=== PATIENT | female | born 1965 | race Caucasian/White ===

== ENCOUNTER 2024-11-08 19:14 | Emergency (ER) | payer OTHER, SELFPAY ==
--- NOTE | ~2024-11-08 | XR_ITS ---
EXAM: XR wrist LT 2V, XR forearm LT 2V DATE: 11/08/2024 19:52 HISTORY: fall . COMPARISON: None available. FINDINGS: Osteopenia. Comminuted, intra-articular distal left radial fracture, with 3 mm posterior d isplacement and mild impaction. No lytic or blastic lesion. Joint spaces are maintained. No erosion o r periosteal change. Soft tissues within normal limits. IMPRESSION: Comminuted, intra-articular, mildly impacted and mildly displaced distal left radial frac ture. Reviewed, dictated and finalized at location K. IMPRESSION: Comminuted, intra-articular, mildly impacted and mildly displaced d istal left radial fracture.
--- NOTE | ~2024-11-08 | XR_ITS ---
EXAM: XR wrist RT 2V DATE: 11/08/2024 19:52 HISTORY: fall . COMPARISON: None available. FINDINGS: Osteopenia. No fracture or dislocation. No lytic or blastic lesion. Joint spaces are maint ained. No erosion or periosteal change. Soft tissues within normal limits. IMPRESSION: No acute osseous finding in the right wrist. Reviewed, dictated and finalized at location K.
[2024-11-08 19:17] VITALS: BP 152/102; PULSE 64; RESP 16; TEMP 36.7; O2SAT 98
[2024-11-08 20:02] VITALS: PULSE 46; RESP 16; O2SAT 98
--- OUTSIDE RECORDS SUMMARY | 2024-11-08 21:30 | XMS_ITS | Clinical Summary ---
Author Organization [facility] Care Team Providers Care Bitumastic Applier Name Role Phone Unavailable Primary Care Provider Unavailabl e Social History Tobacco Use Types Packs/Day Years Used Date Smoking Tobacco: Never Assessed Comments Unknown Sex and Gender Information Value Date Recorded Sex Assigned at Not on file Legal Sex Female 9:28 AM CDT Gender Identity Not on file Sexual Orientation Not on file Plan of Treatment Health Maintenance Due Date Last Done Comments Hepatitis C Virus (HCV) Screening 1965 TdaP Immunization 1965 Hepatitis B Immunization (1 of 3 - 19+ 3-dose series) 11/23/1986 Colonoscopy 11/23/2012 Colorectal Cancer Screening 11/23/2012 Cologuard 11/23/2017 Immunochemical Fecal Occult Blood 11/23/2017 Pneumococcal Immunization (5 0+ years) (1 of 1 - PCV) 11/23/2017 Influenza Immunization (#1) 2024 04/25/2020 SARS-COV-2 Immunization ( season) 2024 05/05/2021, 09/22/2020, 09/01/2020 Respiratory Syncytial Virus (RSV) Immunization (Adult) (1 - 1-dose 75+ series) 11/23/2042 Zoster Immunization Completed 07/08/2020, 04/25/2020 Meningococcal Immunization (ACWY) Aged Out No longer eligible b ased on patient's age to complete this topic Rotavirus Immunization Aged Out No lo nger eligible based on patient's age to complete this topic
--- OUTSIDE RECORDS SUMMARY | 2024-11-08 21:30 | XMS_ITS | Clinical Summary ---
Author Organization [facility] Address [address] [place] [address] Care Team Providers Care Combine Mechanic Name Role Phone Unavailable Primary Care Provider Unavailabl e Source Comments [facility],non-owned Affiliates and Associated Physician Practices is amultiple site organization consisting of ambulatory clinics and hospital sitesin [place], [place], [place] and [place]. This disclosure is being madepursuant to the Care Everywhere program and may not contain all information available regarding this patient. Last updated 18.[facility] Allergies No known active allergies Medications * Be aware that medications may not be up to date on this document. Alwaysverify current medications with the patient. No known medications Social History Tobacco Use Types Packs/Day Years Used Date Smoking Tobacco: Never Smokeless Tobacco: Never Comments No Sex and Gender Information Value Date Recorded Sex Assigned at Not on file Legal Sex Female 4:52 PM UNDERTAKER ASSISTANT Gender Identity Not on file Sexual Orientation Not on file Last Filed Vital Signs Vital Sign Reading Time Taken Comments Blood Pressure 110/70 08/10/2018 12:46 PM CDT Pulse 64 08/10/2018 12:46 PM CDT Temperature 37.1 C (98.7 F) 08/10/2018 12:46 PM CDT Respiratory Rate 16 08/10/2018 12:46 PM CDT Oxygen Saturation 97% 08/10/2018 12:46 PM CDT Inhaled Oxygen Concentration - - Weight 63.5 kg (140 lb) 08/10/2018 12:46 PM CDT Height 167.6 cm (5' 6) 08/10/2018 12:46 PM CDT Body Mass Index 22.6 08/10/2018 12:46 PM CDT Plan of Treatment Health Maintenance Due Date Last Done Comments LEA (AGES 45-75) - COL ON CA SCREENING 1965 COLON MONITORING 1967 COLONOSCOPY - COLON CA SCREENING 1967 CT COLONOGRAPHY - COLON CA SCREENING 1965 Colorectal Cancer Screening 1965 FIT - COLON CA SCREENING 1967 FLEX SIG - COLON CA SCREENING 1965 LIPID TESTING 1965 MAMMOGRAM 1965 HIV SCREENING 11/23/1982 HEPATITIS C SCREENING 11/19/1985 DTAP/TDAP/TD VACCINES (1 - Tdap) 11/23/1986 HEPATITIS B VACCINE (1 of 3 - 19+ 3-dose series) 11/23/1986 PNEUMOCOCCAL VACCINE 50+ (1 of 1 - PCV) 11/23/2017 ZOSTER VACCINE (1 of 2) 11/23/2017 COVID-19 VACCINE ( - 2023-2 5 season) 2024 DEPRESSION SCREENING 06/03/2024 INFLUENZA VACCINE (Season Ended) 2025 HIB VACCINE Aged Out No longer eligi ble based on patient's age to complete this topic HPV VACCINE Aged Out No longer eligi ble based on patient's age to complete this topic MENINGOCOCCAL (Group B) VACC INE SHARED DECISION-MAKING Aged Out No longer eligibl e based on patient's age to complete this topic MENINGOCOCCAL GROUPS A/C/Y/W VACCINE Aged Out No longer eligible b ased on patient's age to complete this topic Insurance [employer]
--- OUTSIDE RECORDS SUMMARY | 2024-11-08 21:31 | XMS_ITS | Clinical Summary ---
Author Organization [facility] Address [address] [place] [id number] Care Team Providers Care Drupal Php Developer Name Role Phone Bere Tinoco NP Primary Care Provider [phone] Allergies Active Allergy Reactions Criticality Noted Date Comments No Known Food Allergies Other (See comments) Low Wheat Nausea & Vomiting Low 02/14/2023 Pt states wheat causes bloating and other GI issues. Medications albuterol HFA (PROVENTIL HFA,VENTOLIN HFA) 90 mcg/actuation inhaler inhale 2 puff by INHALATION route every 4 - 6 hours as needed 1 Inhaler 0 6 Active ospemifene 60 mg tablet Take 60 mg by mouth daily. Active omega-3 fatty acids (LOVAZA) 1 gram capsule Take by mouth. Active fexofenadine (ROSALBA) 180 mg tablet Take 1 tablet (180 mg total) by mouth daily Active valACYclovir (VALTREX) 1 gram tablet Take 2000 mg BID x 48 hours 3 Active alendronate (FOSAMAX) 70 mg tablet Take 1 tablet (70 mg total) by mouth once a week 4 Active Active Problems Problem Noted Date Diagnosed Date Chronic migraine without aur a without status migrainosus, not intractable 05/02/2018 Vitamin D deficiency 05/02/2018 Irritable bowel syndrome with constipation 09/18 Generalized abdominal pain 07/04/2017 Assessment & Plan (07/04/2017 2:51 PM CARGO AND RAMP SERVICES MANAGER): 3 months of butning, cramping and pressure entire abd and substernal area. No weight loss. Sx worsened by eating. Dauily MOM and daily bm eithout blood. 01/04 EGD and Colon. No systemic sx/signs. Discussed ibs and functional sx with treatment by diet and Meds (elavil may be ideal). She desires repeat endo eval to know for sure. Has had CT and sono entire abd reportedly normal. 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 Overview (09/12/2017): Description: Hodgkin's Disease Lymphocyte Predominant Encounters Date Type Department Care Team Description 10/12/2024 Telephone [facility] Oncology [facility] Floor [address] [place] [address] Cierra Macias RMA from Last 3 Months Immunizations Immunization Administration Dates Next Due COVID-19 mRNA ([place]) 0.3 m L (30 mcg) vaccine (12 years and up) 03/16/2023 Influenza, Quadrivalent, Diana l Culture-based MDCK, Preservative Free, Antibiotic Free, Intramuscular 03/01/2023,02/23/2022,04/25/2020 Influenza, Unspecified 03/01/2023,02/23/2022,08/2020 Pfizer SARS-CoV-2 Monovalent Vaccination (12+ Yrs) HUTTON-READY TO USE 12/20/2021 Pfizer SARS-CoV-2 Monovalent Vaccination (12+ Yrs) PURPLE 02/23/2022,12/20/2021,12/20/2021,05/05,09/22/2020,09/01/2020 Pfizer Sars-Cov-2 Bivalent V accination (12+ YRS) 03/16/2023,02/23/2022 Tdap 12/20/2021,08/10/2008 ZOSTER Recombinant 07/08/2020,04/25/2020 Surgical History Surgery Date Site/Laterality Comments TOTAL ABDOMINAL HYSTERECTOMY W/ BILATERAL SALPINGOOPHORECTOMY 06/03/2004 - 06/02/2005 Hysterectomy, total abdominal, BSO OTHER SURGICAL HISTORY 06/03/2010 - 06/02/2011 tonsillectomy: August OTHER SURGICAL HISTORY hodgkin's: parotidectomy, radiation TOTAL ABDOMINAL HYSTERECTOMY Hysterectomy, total AUGMENTATION MAMMOPLASTY augmentation mammoplasty COLONOSCOPY 06/03/2003 - 06/02/2004 BREAST IMPLANT REMOVAL 07/11/2017 Bilateral Medical History Medical History Date Comments GERD (gastroesophageal reflux disease) Asthma Family History Medical History Relation Name Comments Alzheimer's disease Mother Alzheime r's Disease; Breast cancer Mother Cancer -breast ; /Cancer, breast; Hypertension Sister 1 Hypertension; Obesity Sister 2 Obesity; Relation Name Status Comments Mother Sister 1 Sister 2 Social History Tobacco Use Types Packs/Day Years Used Date Smoking Tobacco: Never Smokeless Tobacco: Never Tobacco Cessation:Counseling Given: Not Answered Alcohol Use Standard Drinks/Week Comments No 0 (1 standard drink = 0.6 oz pur e alcohol) Comments No Sex and Gender Information Value Date Recorded Sex Assigned at Not on file Legal Sex Female 11:54 PM CARGO AND RAMP SERVICES MANAGER Gender Identity Female 02/04/2020 12:20 AM CDT Sexual Orientation Not on file Obstetrics History Last Filed Vital Signs Vital Sign Reading Time Taken Comments Blood Pressure 98/65 02/27/2024 2:30 PM CDT Pulse 51 02/27/2024 2:30 PM CDT Temperature 36.4 C (97.5 F) 02/27/2024 2:30 PM CDT Respiratory Rate 18 02/27/2024 2:30 PM CDT Oxygen Saturation 96% 02/27/2024 2:30 PM CDT Inhaled Oxygen Concentration - - Weight 64 kg (141 lb) 02/27/2024 2:30 PM CDT Height 165.1 cm (5' 5) 02/14/2023 2:03 PM CDT Body Mass Index 23.46 02/14/2023 2:03 PM CDT Plan of Treatment Health Maintenance Due Date Last Done Comments Hepatitis C Screening 1965 Hepatitis B Screening 11/23/1985 Pneumococcal vaccine <65 (1 of 2 - PCV) 11/23/1986 Depression Screening 12/18/2017 12/18/2016 Regular Well Visit/Exam 18-64 12/18/2017 12/18/2016 Covid-19 Vaccine (2023-2 5 season) 2024 03/16/2023, 03/16/2023, 02/23/2022, Additional history exists Breast Cancer Screening-Mammogram 12/26/2024 12/27/2023, 12/27/2023, 04/07/2021, Additional history exists Influenza Vaccine (Season Ended) 2025 03/01/2023, 03/01/2023, 02/23/2022, Additional history exists Colon Cancer Screening-Colonoscopy 07/25/2027 07/25/2017 DTaP/Tdap/Td Vaccine (3 - Td or Tdap) 12/21/2031 12/20/2021, 08/10/2008 Colon Cancer Screening-CT Colonography Discontinued 07/25/2017 Colon Cancer Screening-DNA Stool Discontinued 07/25/19 Colon Cancer Screening-FIT Discontinued 07/25/2017 Colon Cancer Screening-Sigmoidoscopy Discontinued 07/25/2017 Zoster Vaccine Completed 07/08/2020, 04/25/2020 Cervical Cancer Screening Discontinued 12/24/2023 Procedures Procedure Name Priority Date/Time Associated Diagnosis Comments COLONOSCOPY 07/25/2017 10:23 AM CARGO AND RAMP SERVICES MANAGER MAMMOGRAPHY Routine 01/06/2016 from Last 3 Months or Most Recently Relevant to Health Maintenance Results * COLONOSCOPY (07/25/2017 10:23 AM CARGO AND RAMP SERVICES MANAGER) Anatomical Region Laterality Modality Other Narrative Procedure Note Elias Hernandez MD - 07/25/2017 10:[address] [facility] Patient Name: Jesscia Herrera Procedure Date: 07/25/2017 10:23 AM Date of : 1965 Admit Type: Outpatient Age: 51 Gender: Female Attending MD: Elias Hernandez M.D. Room: [facility]OM 1 Note Status: Finalized Procedure: Colonoscopy Indications: Generalized abdominal pain Referring MD: Terrance Almodovar MD Providers: Elias Hernandez M.D. Impression: - The entire examined colon is normal. - No specimens collected. Recommendation: - Discharge patient to home. - Resume previous diet indefinitely. - Continue present medications. Medicines: Sedation Administered by an AnesthesiaProfessional Complications: No immediate complications. Estimated Blood Loss: Estimated blood loss: none. Procedure: The benefits, risks and alternatives of theprocedure and sedation were discussed and informed consent was obtained. All questions were answered. Please referto the signed informed consent document in the medical record. The scope was passed under direct vision.The Colonoscope [id number] was introducedthrough the anus and advanced to the the cecum, identifiedby appendiceal orifice and ileocecal valve. The colonoscopy was performed without difficulty. The patient tolerated the procedure well. The quality of the bowel preparation was excellent. Findings: The perianal and digital rectal examinations were normal. The colon (entire examined portion) appeared normal. Electronically signed by Elias Hernandez M.D. Elias Hernandez M.D. 07/25/2017 11:06:22 AM Number of Addenda: 0 Note Initiated On: 07/25/2017 10:23 AM Procedure Code(s): --- Professional --- 70428, Colonoscopy, flexible; diagnostic, including collection of specimen(s) by brushing or washing, when performed (separateprocedure) Diagnosis Code(s): --- Professional --- R10.84, Generalized abdominal pain CPT copyright 2014 [employer]. All rights reserved. The codes documented in this report are preliminary and upon clinical project manager reviewmay be revised to meet current compliance requirements. Recognized by the [employer] for promoting quality in endoscopy Elias Hernandez MD ENDOSCOPY PROCEDURES Final Re sult * MAMMOGRAPHY (01/06/2016) Mammogram Normal Historical Provider MD HEALTH MAINTENANCE Final Result from Last 3 Months or Most Recently Relevant to Health Maintenance Insurance [email or web address] OPEN ACCESS [facility] Advance Directives For more information, please contact: [phone] * Full Code (Latest Code Status on File) Date Activated Date Inactivated Comments 07/25/2017 9:37 AM 07/25/2017 1:52 PM Care Teams Drupal Php Developer Relationship Specialty Start Date End Date Bere Tinoco NP [address] [place] [id number] PCP - General Nurse Practitioner 04/10/24
--- OUTSIDE RECORDS SUMMARY | 2024-11-08 21:31 | XMS_ITS | Referral Summary ---
Author Organization [facility] Address [address] [place] [address] Care Team Providers Care Blindstitch Machine Operator Name Role Phone Bere Tinoco NP Primary Care Provider Encounters Date Type Department Care Team Description 10/12/2024 Telephone [facility] Oncology [facility] Floor [address] [place] [address] Cierra Macias RMA from Last 3 Months Allergies Active Allergy Reactions Criticality Noted Date [...] 07/04/2017 Assessment & Plan (07/04/2017 2:51 PM SPICE ROOM WORKER): 3 months of butning, cramping and pressure [...] Overview (09/12/2017): Description: Hodgkin's Disease Lymphocyte Predominant Immunizations Immunization Administration Dates Next Due COVID-19 mRNA ([employer]) 0.3 m L (30 mcg) vaccine (12 years and up) 03/16/2023 Influenza, Quadrivalent, Diana l Culture-based MDCK, Preservative Free, Antibiotic Free, Intramuscular 03/01/2023,02/23/2022,04/25/2020 Influenza, Unspecified 03/01/2023,02/23/2022,08/2020 Pfizer SARS-CoV-2 Monovalent Vaccination (12+ Yrs) HUTTON-READY TO USE 12/20/2021 Pfizer SARS-CoV-2 Monovalent Vaccination (12+ Yrs) PURPLE 02/23/2022,12/20/2021,12/20/2021,05/05,09/22/2020,09/01/2020 Pfizer Sars-Cov-2 Bivalent V accination (12+ YRS) 03/16/2023,02/23/2022 Tdap 12/20/2021,08/10/2008 ZOSTER Recombinant 07/08/2020,04/25/2020 Social History Tobacco Use Types Packs/Day Years Used Date Smoking Tobacco: Never Smokeless Tobacco: Never Tobacco Cessation:Counseling Given: Not Answered Alcohol Use Standard Drinks/Week Comments No 0 (1 standard drink = 0.6 oz pur e alcohol) Comments No Sex and Gender Information Value Date Recorded Sex Assigned at Not on file Legal Sex Female 11:54 PM SPICE ROOM WORKER Gender Identity Female 02/04/2020 12:20 AM CDT Sexual Orientation Not on file Last Filed [...] 02/14/2023 2:03 PM CDT Plan of Treatment Not on file Procedures Procedure Name Priority Date/Time Associated Diagnosis Comments COLONOSCOPY 07/25/2017 10:23 AM SPICE ROOM WORKER MAMMOGRAPHY Routine 01/06/2016 from Last 3 Months or Most Recently Relevant to Health Maintenance Results * COLONOSCOPY (07/25/2017 10:23 AM SPICE ROOM WORKER) Anatomical Region Laterality Modality Other Narrative Procedure Note Elias Hernandez MD - 07/25/2017 10:23 AM CST [facility] Patient Name: Jessica Herrera Procedure Date: 07/25/2017 10:23 AM Date of : 1965 Admit Type: Outpatient Age: 51 Gender: Female Attending MD: Elias Hernandez M.D. Room: [facility] END[facility] RO[facility] 1 Note Status: Finalized Procedure: [...] scope was passed under direct vision.The Colonoscope [id number] was introducedthrough the anus and advanced to [...] 10:23 AM Procedure Code(s): --- Professional --- 85473, Colonoscopy, flexible; diagnostic, including collection of specimen(s) by brushing or washing, when performed (separateprocedure) Diagnosis Code(s): --- Professional --- R10.84, Generalized abdominal pain CPT copyright 2014 [employer]. All rights reserved. The codes documented in this report are preliminary and upon risk assessment consultant reviewmay be revised to meet current compliance requirements. Recognized by the [employer] for promoting quality in endoscopy Elias Hernandez MD ENDOSCOPY PROCEDURES Final Re sult * MAMMOGRAPHY (01/06/2016) Mammogram Normal Historical Provider HEALTH MAINTENANCE Final Result from Last 3 Months or Most Recently Relevant to Health Maintenance Insurance [employer] OPEN ACCESS [facility] H[facility]/PPO Address: [address] [address] [place] [address] [facility] H[facility]/PPO Address: [address] [address] [place] [address] Advance Directives For more information, please contact: [phone] * Full Code (Latest Code Status on File) Date Activated Date Inactivated Comments 07/25/2017 9:37 AM 07/25/2017 1:52 PM Care Teams Blindstitch Machine Operator Relationship Specialty Start Date End Date Bere Tinoco NP [address] [place] [id number] PCP - General Nurse Practitioner 04/10/24
[2024-11-08] MEDS: HYDROcodone/acetaminophen (*CRX) 5-325 MG TABLET 1 TAB PO (21:35)
--- NOTE | 2024-11-08 21:46 | ED_ITS ---
HPI - General Adult General Chief complaint: Extremity Injury, Upper Stated complaint: Upper extremity pain Time Seen by Provider: 11/08/24 20:31 History of Present Illness HPI narrative: Patient is a 58-year-old female who presents emergency department this evening status post a trip and fall that occurred in her garage. Patient states that they were getting back from a 3 day camping trip and tripped over something in the garage falling forward. Patient tried to catch herself using her bilateral hands. Patient does have some mild swelling and tenderness to her left wrist. She is right handed. Denies hitting her head and denies any loss of consciousness. Related Data Allergies Allergy/AdvReac Type Severity Reaction Status Date / Time No Known Allergies Allergy Verified 11/08/24 20:03 Review of Systems Review of Systems: All systems are reviewed and are negative unless stated otherwise in the HPI. Exam Narrative: General: Alert, awake, afebrile, in no acute distress. HEENT: PERRL, no rhinorrhea, no post nasal drip, oropharynx clear. Neck: Trachea midline, no JVD, no lymphadenopathy. Cardiovascular: Regular rate and rhythm, no murmurs, rubs or gallops, no peripheral edema. Respiratory: Clear to auscultation bilaterally, no tachypnea, no wheezing, no rhonchi, no rubs, no respiratory distress. Abdomen: Soft, nontender, nondistended, no rebound, no guarding, no peritoneal signs. Musculoskeletal: Moderate swelling and bruising noted to the dorsum aspect of the left wrist joint, no obvious deformity noted, intact radial and ulnar pulses, patient is neurovascularly intact. Skin: No rashes or petechia, no signs of infection. Psychiatric: Alert and oriented, normal behavior and judgment for situation. Neurological: Alert and oriented to person, place, and time. Follows all commands. No focal deficits, speech is clear and fluent. Course Vital Signs Vital signs: Vital Signs Temperature 98.1 F 11/08/24 19:17 Pulse Rate 64 11/08/24 19:17 Respiratory Rate 16 11/08/24 19:17 Blood Pressure 152/102 H 11/08/24 19:17 Pulse Oximetry 98 11/08/24 19:17 Oxygen Delivery Room Air 11/08/24 19:17 Temperature 98.1 F 11/08/24 19:17 Pulse Rate 46 L 11/08/24 20:02 Respiratory Rate 16 11/08/24 20:02 Blood Pressure 152/102 H 11/08/24 19:17 Pulse Oximetry 98 11/08/24 20:02 Oxygen Delivery Room Air 11/08/24 19:17 Medical Decision Making MDM Narrative Medical decision making narrative: The patient was evaluated by myself in the emergency department. History is obtained from patient who is an independent historian and physical exam was performed. External medical records were reviewed at this time. Patient was administered an oral Glenwood 5-325 mg. Imaging studies obtained included bilateral wrist x-rays and left forearm x-ray which was independently interpreted by me revealing a comminuted intra-articular mildly impacted distal left radial fracture, minimal to no displacement noted, which is pending final radiology interpretation. At this time, patient was informed of these findings at bedside, placed in Kazakh finger splint to help with the impaction and splint was placed. Differential diagnosis considerations include fractures, dislocations, musculoskeletal strain. Comorbidities impacting this visit include none. I have evaluated and discussed social determinants of health with the patient that could potentially impact subsequent diagnosis and treatment plans. On repeat assessment of the patient, reevaluation revealed that the patient is doing well and is in no acute distress. Patient symptoms have improved since she arrived to our emergency department. Repeat vital signs were all reviewed and noted to be stable. Differential diagnosis and treatment plan were discussed with the patient at bedside. Patient agrees with discussion and after shared medical decision making agrees with discharge. All questions were answered to the patient's satisfaction. Patient will follow up with Orthopedics with Dr. Rodríguez in 3-5 days. A script for Glenwood were sent to patient's pharmacy to use as needed for pain. Patient was provided with strict return precautions and instructed to return to the emergency department if any new or worsening symptoms develop. The patient was discharged in stable condition. Vital Signs Vital Signs: Vital Signs Temperature 98.1 F 11/08/24 19:17 Pulse Rate 64 11/08/24 19:17 Respiratory Rate 16 11/08/24 19:17 Blood Pressure 152/102 H 11/08/24 19:17 Pulse Oximetry 98 11/08/24 19:17 Oxygen Delivery Room Air 11/08/24 19:17 Temperature 98.1 F 11/08/24 19:17 Pulse Rate 46 L 11/08/24 20:02 Respiratory Rate 16 11/08/24 20:02 Blood Pressure 152/102 H 11/08/24 19:17 Pulse Oximetry 98 11/08/24 20:02 Oxygen Delivery Room Air 11/08/24 19:17 Discharge Plan Discharge Clinical Impression: Fracture of wrist Patient Disposition: Home Condition: Improved Instructions: Antibiotic Form, Arm Fracture in Adults (ED) Additional Instructions: Please follow-up with the orthopedic surgeon you were provided with today within the next 3-5 days. Return to emergency department if any new or worsening symptoms develop. Take the prescribed pain medication as needed for pain. Patient Language: Argentine Prescriptions: New hydrocodone-acetaminophen 5-325 mg tablet 1 tablet PO Q8H PRN (Reason: pain) Qty: 14 0RF Follow-up/Referrals: BROOKLYN,MASOOD SHARMA [Primary Care Provider] - Babatunde Rodríguez MD [Physician] - 3 Days Time of Disposition: 21:53
--- NOTE | 2024-11-08 22:17 | PC.NURSE ---
patient placed in hungarian finger splint per edp dr. puentes order. edp dr. puentes applied patient into the [place].
== END 2024-11-08 23:57 | disposition home or self-care (01) ==
PROVIDERS: Emergency Provider Emergency Medicine; PCP Nurse Practitioner Family
DX: S52.572A Other intraarticular fracture of lower end of left radius, initial encounter for closed fracture (principal); W01.0XXA Fall on same level from slipping, tripping and stumbling without subsequent striking against object, initial encounter
CPT/HCPCS: 29125; 73090; 73100; 99284; A9270